=== PATIENT | female | born 1995 | race Caucasian/White ===

== ENCOUNTER 2023-09-01 09:27 | Outpatient (CLI) | payer BC, SELFPAY ==
--- NOTE | 2023-09-01 09:45 | CRLHL7_ITS ---
For Patients: As a result of the Century Cures Act, medical imaging exams and procedure reports are released immediately into your electronic medical record. You may view this report before your referring provider. If you have questions, please contact your health care provider. INDICATION: survey. TECHNIQUE: Conventional transabdominal two-dimensional grayscale ultrasound examination. COMPARISON: None. FINDINGS: There is a living fetus with gestational age of 19 weeks 5 days by LMP and 19 weeks 2 days by today`s measurements. EDC based on LMP is 01/21/2024. BPD: 4.5 cm, 19 weeks 4 days Head circumference: 16.9 cm, 19 weeks 4 days Abdominal circumference: 15.2 cm, 20 weeks 3 days Femur length: 3.1 cm, 19 weeks 4 days The weight is estimated at 322 grams, the 59th percentile. The heart rate is measured at 150 beats per minute and the rhythm appears regular. The head and spine are grossly intact. No gross facial abnormality is evident. The upper lip is intact. Four cardiac chambers are demonstrated. The heart and stomach appear to be on the same side. The diaphragm is intact. Two kidneys and a bladder are demonstrated. The cord insertion is normal and three cord vessels are noted. Four extremities are demonstrated. The amniotic fluid volume is within normal limits. The placenta is posterior with no evidence of previa. The cervical length is normal at 5.3 cm. IMPRESSION: 1. Living fetus with gestational age of 19 weeks 5 days by LMP and 19 weeks 2 days by today`s measurements. EDC based on LMP is 01/21/2024. 2. No anomaly evident. Dictated by Joel Moreira MD @ 09/02/2023 8:22:01 AM (Electronically Signed)
== END 2023-09-01 09:28 | disposition home or self-care (01) ==
LOC: US 09:28
PROVIDERS: Visit Provider Obstetrics & Gynecology
DX: Z34.92 Encounter for supervision of normal pregnancy, unspecified, second trimester (principal); Z3A.19 19 weeks gestation of pregnancy
CPT/HCPCS: 76805; 80053; 87086

== ENCOUNTER 2023-09-02 15:57 | Emergency (ER) | payer BC, SELFPAY ==
[2023-09-02 16:02] VITALS: BP 129/81; PULSE 101; RESP 18; TEMP 37; O2SAT 100; BMI 25.0
--- NOTE | 2023-09-02 16:02 | ED_ITS ---
HPI - General Adult General Time Seen by Provider: 16:02 Date Seen: 09/02/23 Chief complaint: Urogenital Problems, Female Stated complaint: possible UTI Time Seen by Provider: 09/02/23 15:58 Source: patient, RN notes reviewed and old records reviewed Mode of arrival: ambulatory Limitations: no limitations History of Present Illness HPI narrative: 28-year-old female G1 at 19+ 6 who presents today with urinary concerns.She reports right flank pain for the last 3 4 days, became more intense today. 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 She took some ibuprofen which improved her symptoms today. No dysuria nor hematuria. Denies chest pain or shortness of breath. No abdominal pain or tenderness. No diarrhea or constipation. No vaginal bleeding or leakage of fluid. Related Data Home Medications Medication Instructions Recorded Confirmed cetirizine 10 mg capsule (Zyrtec) 10 mg PO QDAY PRN 08/12/23 09/01/23 docosahexaenoic acid 200 mg mg PO 08/12/23 09/01/23 capsule ( DHA) Previous Rx's Medication Instructions Recorded hydroxyzine pamoate 25 mg capsule 50 mg (2 x 25 mg) PO QHS #60 caps 08/12/23 (Vistaril) Allergies Allergy/AdvReac Type Severity Reaction Status Date / Time No Known Drug Allergies Allergy Verified 09/01/23 10:10 [facility] Medical History Hyperprolactinemia ?E22.1 - Hyperprolactinemia (ICD-10) Family History Mother Endometriosis Pulmonary embolism Father Kidney disease Maternal Grandmother Diabetes Paternal Grandfather Lung cancer Social History (Updated 08/12/23 @ 13:01 by Lazara Fournier MD) Narrative: Patient works as a clinical data analysis, she is , no restoration or cultural needs, no chemical radiation exposure, no current or previous tobacco, alcohol, recreational drug use. No dietary restrictions. Accepts blood transfusions in the case of an emergency. Exam Narrative: Exam Narrative: General: Well-developed and well-nourished, no acute distress Head: Atraumatic and normocephalic Eyes: Pupils are equal reactive, extraocular motions intact, conjunctiva clear ENT: External nose and ears are normal, posterior pharynx without erythema or exudate Neck: No midline cervical tenderness, full spontaneous range of motion the neck, trachea midline, no adenopathy Heart: Regular rate and rhythm no murmurs or thrills Lungs: Clear to auscultation bilaterally without wheezes or crackles Abdomen: Soft, nontender, nondistended with active bowel sounds, mild right CVA tenderness to palpation but not percussion Musculoskeletal: No tenderness, deformity, or edema Neurologic: Awake, alert, and oriented x3, no gross focal neurologic deficits, cranial nerves intact as tested Psych: Mood and affect are appropriate Skin: No rashes Const: Vital Signs, click to edit/add: Vital Signs - 24 hr 09/02/23 16:02 Temperature 98.6 F Pulse Rate [Pulse Oximeter] 101 H Respiratory Rate 18 Blood Pressure [Ri ght Upper Arm] 129/81 Pulse Oximetry 100 Oxygen Delivery Me thod Room Air Course Course ED Course: Patient presents with flank pain, she is quite concerned about kidney infection. Review of chart shows the patient was seen yesterday with some right flank pain, urinalysis at that time did not demonstrate any indication of infection, no hematuria, no red cells. she has no tenderness to percussion and only minimal tenderness to palpation. No right upper quadrant, right lateral, right lower quadrant tenderness to suggest acute cholecystitis or acute appendicitis. Labs ordered and is repeat urinalysis although this is unlikely to represent urinary tract infection. Concern for possible hydronephrosis and h ydroureter related to ureteral compression. Right upper quadrant ultrasound with right renal ultrasound ordered. Reevaluation(s) Time of Reevaluation #1: 17:04 Reevaluation #1: Right upper quadrant and right renal ultrasound negative for hydronephrosis, hydroureter, Renal stones,acute cholecystitis, biliary obstruction. Labs are pending. Time of Reevaluation #2: 17:36 Reevaluation #2: Labs ordered and independently interpreted by me with mild leukocytosis which likely is physiologic related to . Urine today with 2-5 white blood cells and few bacteria. Given bacteria in symptoms, patient will be started on Keflex. Patient reexamined, still no right-sided abdominal tenderness in the upper, lower, or mid abdomen no lateral abdominal tenderness to suggest acute appendicitis. Vital Signs Vital signs: Initial Vital Signs Temperature 98.6 F 09/02/23 16:02 Temperature Source Temporal Artery Scan 09/02/23 16:02 Pulse Rate 101 H 09/02/23 16:02 Respiratory Rate 18 09/02/23 16:02 Blood Pressure 129/81 09/02/23 16:02 Blood Pressure Mean 97 09/02/23 16:02 Pulse Oximetry 100 09/02/23 16:02 Oxygen Delivery Method Room Air 09/02/23 16:02 Vital Signs Temperature 98.6 F 09/02/23 16:02 Pulse Rate 101 H 09/02/23 16:02 Respiratory Rate 18 09/02/23 16:02 Blood Pressure 129/81 09/02/23 16:02 Pulse Oximetry 100 09/02/23 16:02 Oxygen Delivery Method Room Air 09/02/23 16:02 Temperature 98.6 F 09/02/23 16:02 Pulse Rate 101 H 09/02/23 16:02 Respiratory Rate 18 09/02/23 16:02 Blood Pressure 129/81 09/02/23 16:02 Pulse Oximetry 100 09/02/23 16:02 Oxygen Delivery Method Room Air 09/02/23 16:02 Medical Decision Making Lab Data Labs: Lab Results 09/02/23 09/02/23 Range/Units 16:53 17:00 WBC 13.43 H (4.50-11.00) K/uL RBC 3.74 L (4.00-5.20) m/uL Hgb 11.4 L (12.0-16.0) gm/dL Hct 33.9 (33.0-51.0) % MCV 91 (80-100) fL MCH 31 (26-34) pg MCHC 34 (32-36) gm/dL RDW Coeff of Santino 13.0 (11.5-15.5) % Plt Count 206 (140-440) K/uL Neut % (Auto) 79.2 H (42.0-72.0) % Lymph % (Auto) 13.6 L (20-44) % [place] % (Auto) 5.4 (0.0-11.0) % Eos % (Auto) 0.8 (0.0-7.0) % Baso % (Auto) 0.2 (0.0-3.0) % Neut # (Auto) 10.60 H (1.7-7.0) K/uL Lymph # (Auto) 1.80 (0.90-2.90) K/uL [place] # (Auto) 0.70 (0.00-0.90) K/UL Eos # (Auto) 0.10 (0.00-0.50) K/uL Baso # (Auto) 0.00 (0.00-0.30) K/uL Abs Immat Gran (auto) 0.10 (0.00-0.30) K/uL Imm/Tot Granulo (auto) 0.8 % Urine Color Yellow (Yellow) Urine Appearance Clear (Clear) Urine pH 6.0 (5.0-8.5) Ur Specific [place] 1.010 (1.000-1.030) Urine Protein Negative (Negative) Urine Glucose (UA) Negative (Negative) Urine Ketones Negative (Negative) Urine Blood Negative (Negative) Urine Nitrite Negative (Negative) Urine Bilirubin Negative (Negative) Urine Urobilinogen 0.2 (0.2-1.0) Ur Leukocyte Esterase Negative (Negative) Urine RBC 0-2 (0-2) Urine WBC 2-5 (0-5) Ur Squamous Epith Cells None (None-Few) Urine Bacteria Few A (None) Discharge Plan Discharge Clinical Impression: Acute right-sided low back pain, Acute cystitis, Patient Disposition: Home, Self-Care Condition: Stable Instructions: Acute Low Back Pain (ED), at 19 to 22 Weeks (ED) Additional Instructions: Tylenol, warm packs, ice packs for pain follow-up with your primary care doctor and charge account authorizer Activity Level: No Restrictions Discharge Diet: Regular Prescriptions: No Action Zyrtec 10 mg capsule 10 mg PO QDAY PRN DHA 200 mg capsule PO hydroxyzine pamoate [Vistaril] 25 mg capsule 50 mg PO QHS Qty: 60 0RF Follow Up/Referrals: Provider,Not a Local [Primary Care Provider] - Stand Alone Forms: MyHealth Info Instructions
--- NOTE | 2023-09-02 16:26 | CRLHL7_ITS ---
For Patients: As a result of the Century Cures Act, medical imaging exams and procedure reports are released immediately into your electronic medical record. You may view this report before your referring provider. If you have questions, please contact your health care provider. INDICATION: Right flank pain. Twenty weeks . TECHNIQUE: Ultrasound abdomen limited. Sonographic images of the right upper quadrant were obtained using cobian-scale and color Doppler images. COMPARISON: None FINDINGS: Liver: Echogenicity of the liver parenchyma is within normal limits. Bile ducts: Intrahepatic bile ducts are not dilated. The common bile duct measures 0.3 cm. Gallbladder: Contracted, patient not NPO. No cholelithiasis, significant gallbladder wall thickening, or pericholecystic fluid identified. Negative sonographic Guevara`s sign. Pancreas: Pancreas is poorly visualized secondary to acoustic shadowing from overlying/adjacent bowel gas. Right kidney: The right kidney measures 11.6 cm in length. No renal calculi or significant hydronephrosis is identified. IMPRESSION: 1. Gallbladder is contracted, suboptimally evaluated. No cholelithiasis, or sonographic evidence of acute cholecystitis. 2. No right hydronephrosis. Dictated by Lenard Oneill MD @ 09/02/2023 5:36:17 PM (Electronically Signed)
[2023-09-02 16:58] LABS: Basophils Percent Auto 0.2 % (0.0-3.0); Eosinophils Percent Auto 0.8 % (0.0-7.0); Hematocrit 33.9 % (33.0-51.0); Hemoglobin* 11.4 gm/dL (12.0-16.0); Immature Granulocytes Pct Auto 0.8 %; Lymphocytes Percent Auto 13.6 % (20-44); Mean Corpuscular HGB Conc 34 gm/dL (32-36); Mean Corpuscular Hemoglobin 31 pg (26-34); Mean Corpuscular Volume 91 fL (80-100); Monocytes Percent Auto 5.4 % (0.0-11.0); Neutrophils Percent Auto 79.2 % (42.0-72.0); Platelet Count* 206 K/uL (140-440); Red Blood Count 3.74 m/uL (4.00-5.20); White Blood Count* 13.43 K/uL (4.50-11.00)
[2023-09-02 17:07] LABS: Appearance Urine Clear (Clear); Bilirubin Urine Negative (Negative); Blood Urine Negative (Negative); Color Urine Yellow (Yellow); Glucose Urine Negative (Negative); Ketones Urine Negative (Negative); Leukocyte Esterase Urine Negative (Negative); Nitrite Urine Negative (Negative); Protein Urine Negative (Negative); Urobilinogen Urine 0.2 (0.2-1.0)
[2023-09-02 17:17] LABS: Slide Review Reflex No
[2023-09-02 17:20] LABS: RBC Urine 0-2 (0-2)
[2023-09-02 17:21] LABS: Bacteria Urine Few
== END 2023-09-02 17:50 | disposition home or self-care (01) ==
PROVIDERS: Emergency Provider Family Medicine
DX: O23.12 Infections of bladder in pregnancy, second trimester (principal); N30.00 Acute cystitis without hematuria; M54.50 Low back pain, unspecified; Z3A.19 19 weeks gestation of pregnancy
CPT/HCPCS: 36415; 76705; 81001; 85025; 87086; 99284

== ENCOUNTER 2023-10-28 10:45 | Outpatient (CLI) | payer BC, SELFPAY | END 2023-10-28 10:46 | disposition home or self-care (01) | LOC: NFLDREF 10-31 05:44 | PROVIDERS: Visit Provider Obstetrics & Gynecology | DX: Z34.93 Encounter for supervision of normal pregnancy, unspecified, third trimester (principal) | CPT/HCPCS: 86592 ==

== ENCOUNTER 2023-11-23 15:53 | Outpatient (CLI) | payer BC, SELFPAY ==
[2023-11-23 16:04] VITALS: BP 129/73; PULSE 101; PULSE 126; O2SAT 97
[2023-11-23 16:15] VITALS: TEMP 36.7
[2023-11-23 16:48] LABS: Basophils Percent Auto 0.3 % (0.0-3.0); Eosinophils Percent Auto 0.5 % (0.0-7.0); Hematocrit 36.4 % (33.0-51.0); Hemoglobin* 11.9 gm/dL (12.0-16.0); Immature Granulocytes Pct Auto 1.2 %; Lymphocytes Percent Auto 14.2 % (20-44); Mean Corpuscular HGB Conc 33 gm/dL (32-36); Mean Corpuscular Hemoglobin 29 pg (26-34); Mean Corpuscular Volume 89 fL (80-100); Monocytes Percent Auto 5.3 % (0.0-11.0); Neutrophils Percent Auto 78.5 % (42.0-72.0); Platelet Count* 180 K/uL (140-440); RDW Coefficient of Variation % 12.5 % (11.5-15.5); Red Blood Count 4.08 m/uL (4.00-5.20); White Blood Count* 14.58 K/uL (4.50-11.00)
[2023-11-23 16:50] LABS: Appearance Urine Clear (Clear); Bilirubin Urine Negative (Negative); Blood Urine Negative (Negative); Color Urine Yellow (Yellow); Glucose Urine Negative (Negative); Ketones Urine 4+ (Negative); Leukocyte Esterase Urine Negative (Negative); Nitrite Urine Negative (Negative); Protein Urine Negative (Negative); Urobilinogen Urine 0.2 (0.2-1.0)
[2023-11-23 17:07] LABS: Creatinine* 0.4 mg/dL (0.5-1.5); Estimated Glomerular Filt Rate 137 ml/min
[2023-11-23] MEDS: LACTATED RINGERS 1000 ML 1,000 ML IV (17:18)
[2023-11-23 17:19] LABS: Slide Review Reflex No
--- NOTE | 2023-11-23 17:19 | P.OBLDTN_ITS ---
OB - Triage/Final Diagnosis Visit Information Time Seen by Provider: 17:19 Date Seen: 11/23/23 Narrative: The patient is a 28 year old 1 para 0 at 31 weeks gestation by LMP, who presents with abdominal tightening and back pain. is complicated by musculoskeletal hip pain (ongoing PT cares), POTS, endometriosis, history of suspected nephrolithiasis in . Perez notes migraine headache over the weekend, that has since resolved. She notes increasingly frequent [place]-Meyer contractions, with tightening of the upper abdomen where it seems like her uterus will bulge. Today, she noted onset of low back pain that felt like bad period back cramps. This was constant in nature, lasting hours despite tylenol and rest. She notes nausea without vomiting when her pain was at it's worst. She notes she feels she is maintaining hydration and nutrition. She notes her back pain does NOT coincide with onset of tightening, she notes no pain with these tightening episodes. Denies vaginal bleeding or leaking of fluids. Questioned a tiny pink blood streak in her discharge today. Denies abnormal vaginal discharge, vulvovaginal itching/burning. Endorses active movement. She endorses urinary frequency, denies dysuria or malodor. No bowerl concerns. No sick contacts. Evaluation Laboratory results: Laboratory Tests 11/23/23 11/23/23 Range/Units 16:40 16:37 WBC Pending RBC Pending Hgb Pending Hct Pending MCV Pending MCH Pending MCHC Pending Plt Count Pending Neut % (Auto) Pending Lymph % (Auto) Pending [place] % (Auto) Pending Eos % (Auto) Pending Baso % (Auto) Pending Neut # (Auto) Pending Lymph # (Auto) Pending [place] # (Auto) Pending Eos # (Auto) Pending Baso # (Auto) Pending Creatinine 0.4 L (0.5-1.5) mg/dL Estimated GFR 137 ml/min Urine Color Yellow (Yellow) Urine Appearance Clear (Clear) Urine pH 7.0 (5.0-8.5) Ur Specific [place] 1.010 (1.000-1.030) Urine Protein Negative (Negative) Urine Glucose (UA) Negative (Negative) Urine Ketones 4+ A (Negative) Urine Blood Negative (Negative) Urine Nitrite Negative (Negative) Urine Bilirubin Negative (Negative) Urine Urobilinogen 0.2 (0.2-1.0) Ur Leukocyte Esterase Negative (Negative) Vital signs: Vital Signs - 24 hr 11/23/23 16:04 11/23/23 16:15 Temperature 98.0 F Pulse Rate 101 H Blood Pressure 129/73 Pulse Oximetry 97 Comments: General: Alert and oriented, in no acute distress. She does not grimace or note any pain that coincides with uterine irritability. Abdomen: Gravid. Otherwise soft and non-tender. Back: No CVA tenderness. No paraspinal muscle or SI joint tenderness. Pelvic: External genital exam within normal limits, perineum dry. Speculum inserted, thin/white discharge in vaginal vault. Swab for wet prep obtained. No blood in vaginal vault. Cervix appears closed. Gentle SVE performed, cervix is long and closed. FHR: Reactive NST. Baseline 140bpm, moderate variability, 15x15 accelerations present [place]: Intermittent uterine contractions, uterine irritability Final Diagnosis (1) Hip pain, left: Status: Acute (2) Back pain: Status: Acute Problem details: Perez is seen for abdominal tightening and low back pain, intermittent nausea. Benign abdominal and back exam. Pelvic exam unremarkable, wet prep obtained (negative) and cervix is long/closed. She does have intermittent contractions/irritability, patient asymptomatic during these. She notes her former back pain has improved since calling into triage without intervention. We proceeded with CBC/Cr and UA/UC. These are unremarkable in the setting of , aside from evidence of dehydration. We did proceed with 1L of IVF resuscitation. Offered anti-emetics and pain medication, declined due to spontaneous symptom improvement. Reassured her that there is no signs/symptoms of labor at this time. Discussed strict return precautions for contractions, vaginal bleeding, leaking of fluids or decreased movement. I suspect her back pain is musculoskeletal in nature and unrelated to her [place]- Meyer contractions. She is due to see PT tomorrow. Encouraged her to use rest, stretching, light activity, heat/ice and support belt for symptomatic management. Perez has been looking up her symptoms where she is concerned for osteoporosis in . I explained this would be extremely rare, where I suspect her hip/pelvic pain is more likely benign musculoskeletal pain. She notes this is feeling worse with time despite PT care and symptomatic manageme nt. She feels walking is becoming more difficulty. After discussion, we mutually agree to obtain a left hip X-ray as this is her greatest site of pain. This will be completed outpatient, hopeful to coincide with her upcoming Ob visit on Tuesday. All questions answered, return precautions reinforced.
--- NOTE | 2023-11-23 17:55 | PC.OBNST ---
NST Note NST Note Start: 11/23/23 15:56 Freq: ONCE Status: Active Protocol: Document 11/23/23 17:53 HELEN (Rec: 11/23/23 17:54 HELEN [id number]) NST Note 1 Para (# of births) 0 EDC 01/21/24 Gestational Age In Weeks & Days 31 Weeks & 4 Days Patient Presented with Complaint(s) of Contractions/cramping,Nausea and vomiting Reactive Yes Appropriate for Gestational Age Yes RN Lisbeth Ramirez RN Date 11/23/23 Reactive Yes Appropriate for Gestational Age Yes MARICRUZ [place] RNC Date 11/23/23 OB NST charge Yes Complete NST Note via Write Note Yes The provider's electronic signature indicates the NST is reactive/appropriate for gestational age. *Note to provider: If an addendum is required, open the patient's chart and click on the note under the Nurse/Allied Health tab.
[2023-11-23 18:03] LABS: Clue Cells No Clue Cells Seen (None Seen); Trichomonas No Trichomonas Seen (None Seen); Yeast No Yeast Seen (None Seen)
== END 2023-11-23 18:21 | disposition home or self-care (01) ==
LOC: OB OUT 15:53 → OB 15:54
PROVIDERS: PCP Obstetrics & Gynecology; Visit Provider Obstetrics & Gynecology
DX: O47.03 False labor before 37 completed weeks of gestation, third trimester (principal); M25.552 Pain in left hip; M54.9 Dorsalgia, unspecified; Z3A.31 31 weeks gestation of pregnancy
CPT/HCPCS: 36415; 59025; 81003; 82565; 85025; 87210; G0463; J7120

== ENCOUNTER 2023-11-25 10:51 | Outpatient (CLI) | payer BC, SELFPAY | END 2023-11-25 10:52 | disposition home or self-care (01) | PROVIDERS: PCP Obstetrics & Gynecology; Visit Provider Obstetrics & Gynecology | DX: R10.2 Pelvic and perineal pain (principal) | CPT/HCPCS: 80053; 87086 ==

== ENCOUNTER 2023-11-28 11:04 | Outpatient (CLI) | payer BC, SELFPAY ==
--- NOTE | 2023-11-28 11:15 | US_ITS ---
Patient: LARISA FISHER Facility:?[facility] Patient ID:?[id number] Site Patient ID:?[id number]. Site :?1995 Study:?US-Breast Right RT BREAST LMT / DR. STANFORD TO READ-11/28/2023 11:29:30 AM Ordering Physician:?OBINNA MOREL M.D. Final Report: RIGHT BREAST ULTRASOUND CLINICAL HISTORY: RIGHT breast lump. COMPARISON: None. TECHNIQUE: Real-time ultrasound imaging of RIGHT breast with imaging documentation. FINDINGS: Targeted sonogram RIGHT breast 9 o`clock 4 cm from the nipple performed. In this location there is a solid circumscribed hypoechoic solid mass measuring 1.9 x 1.3 x 1.3 cm. Slight internal vascularity. No abscess. IMPRESSION: Benign fibroadenoma anterior depth RIGHT breast 9 o`clock 4 cm from the nipple measuring 1.9 cm. RECOMMENDATIONS: Clinical follow-up. Results and recommendations were discussed with the patient at the time of the exam. BI-RADS Category 2: Benign A lay language report of this examination will be provided to the patient. Dictated by Josh Stanford MD @ 11/28/2023 11:33:24 AM jj/Dictated by: Josh Stanford MD @ 11/28/2023 11:34:00 AM Signed by:?Josh Stanford MD @11/28/2023 12:12:15 PM (Electronic Signature)
--- NOTE | 2023-11-28 12:00 | XR_ITS ---
Patient: LARISA FISHER Facility:?[facility] Patient ID:?[id number] Site Patient ID:?[id number]. Site :?1995 Study:?XRay-Hip Left 2 VIEW-11/28/2023 11:47:11 AM Ordering Physician:HEATHER Final Report: Indication: Left hip pain Technique: Two views left Comparison: None Findings: Bones: Alignment is normal. No fractures or bone lesions. Joint spaces: Unremarkable. Soft tissues: Overlying artifactual density noted. Impression: No acute or significant findings. Dictated by Josh Haywood MD @ 11/28/2023 11:54:48 AM Signed by:?Josh Haywood MD @11/28/2023 11:54:48 AM (Electronic Signature)
== END 2023-11-28 11:05 | disposition home or self-care (01) ==
LOC: US 11:05
PROVIDERS: PCP Obstetrics & Gynecology; Visit Provider Obstetrics & Gynecology
DX: N63.10 Unspecified lump in the right breast, unspecified quadrant (principal); M25.552 Pain in left hip; M54.9 Dorsalgia, unspecified
CPT/HCPCS: 73502; 76642

== ENCOUNTER 2023-12-23 10:30 | Outpatient (CLI) | payer BC, SELFPAY ==
[2023-12-24 09:28] LABS: Strep B DNA Probe Negative (Negative)
[2023-12-24 09:29] LABS: Strep B Susceptibility Needed? No
== END 2023-12-23 10:31 | disposition home or self-care (01) ==
LOC: NFLDREF 10:31
PROVIDERS: Visit Provider Obstetrics & Gynecology
DX: Z34.03 Encounter for supervision of normal first pregnancy, third trimester (principal)
CPT/HCPCS: 87081; 87653

== ENCOUNTER 2024-01-02 15:26 | Outpatient (CLI) | payer BC, SELFPAY ==
[2024-01-02 15:40] VITALS: BP 132/87; PULSE 93
[2024-01-02 15:48] VITALS: RESP 16; TEMP 37.4
[2024-01-02 16:16] LABS: Amnisure Rom* Negative
[2024-01-02 17:41] LABS: Appearance Urine Clear (Clear); Bilirubin Urine Negative (Negative); Blood Urine Negative (Negative); Color Urine Yellow (Yellow); Glucose Urine Negative (Negative); Ketones Urine 1+ (Negative); Leukocyte Esterase Urine Negative (Negative); Nitrite Urine Negative (Negative); Protein Urine Negative (Negative); Specific Gravity Urine 1.015 (1.000-1.030); Urobilinogen Urine 0.2 (0.2-1.0)
[2024-01-02 18:04] LABS: Bacterial Vaginosis* Negative (Negative); Candida glab/krus NOT DETECTED (No Detected); Candida species NOT DETECTED (No Detected); Trichomonas vaginalis NOT DETECTED (No Detected)
--- NOTE | 2024-01-02 18:11 | US_ITS ---
Patient: LARISA FISHER Facility:?[facility] Patient ID:?[id number] Site Patient ID:?[id number]. Site :?1995 Study:?US-OB Pelvis BPP-01/02/2024 7:49:40 PM Ordering Physician:?SANDRA BIRMINGHAM Final Report: INDICATION: decelerations. TECHNIQUE: Ultrasound OB pelvis transabdominal. Real-time cobian-scale imaging of the fetus was performed without stress testing. COMPARISON: None. FINDINGS: heart rate: Regular, 147 bpm. position: Cephalic. Amniotic fluid volume single deepest pocket 6 cm, 2/2. motion 2/2. tone 2/2. breathing movements 0/2. Umbilical artery S/D ratio: Not measured. IMPRESSION: Single viable intrauterine with a biophysical profile 01/27. Respiratory activity was not observed. Dictated by Chinedu Sewell MD @ 01/02/2024 8:50:08 PM Signed by:?Chinedu Sewell MD @01/02/2024 8:50:08 PM (Electronic Signature)
[2024-01-02 19:50] VITALS: BP 124/89; PULSE 112
--- NOTE | 2024-01-02 20:16 | PC.OBNST ---
NST Note NST Note Start: 01/02/24 15:36 Freq: ONCE Status: Active Protocol: Document 01/02/24 20:15 YASIRKayleen (Rec: 01/02/24 20:16 YASIRKayleen [id number]) NST Note 1 Para (# of births) 0 EDC 01/21/24 Gestational Age In Weeks & Days 37 Weeks & 2 Days Patient Presented with Complaint(s) of Leaking fluid Reactive Yes Appropriate for Gestational Age Yes RN Lisbeth Elena RN Date 01/02/24 Reactive Yes Appropriate for Gestational Age Yes RN Dr. Chavez Date 01/02/24 OB NST charge Yes Complete NST Note via Write Note Yes The provider's electronic signature indicates the NST is reactive/appropriate for gestational age. *Note to provider: If an addendum is required, open the patient's chart and click on the note under the Nurse/Allied Health tab.
== END 2024-01-02 20:25 | disposition home or self-care (01) ==
LOC: OB OUT 15:27 → OB 15:36
PROVIDERS: Visit Provider Obstetrics & Gynecology
DX: O36.8390 Maternal care for abnormalities of the fetal heart rate or rhythm, unspecified trimester, not applicable or unspecified (principal)
CPT/HCPCS: 59025; 76819; 81003; 81513; 84112; 87086; 87481; 87661; G0463

== ENCOUNTER 2024-01-08 21:54 | Outpatient (CLI) | payer BC, SELFPAY ==
[2024-01-08 22:10] VITALS: BP 119/84; PULSE 109; RESP 16; TEMP 36.9
--- NOTE | 2024-01-08 23:03 | PC.OBNST ---
NST Note NST Note Start: 01/08/24 22:01 Freq: ONCE Status: Active Protocol: Document 01/08/24 23:01 SANDRA (Rec: 01/08/24 23:03 [facility] [id number]) NST Note 1 Para (# of births) 0 EDC 01/21/24 Gestational Age In Weeks & Days 38 Weeks & 1 Days Patient Presented with Complaint(s) of Decreased movement Reactive Yes Appropriate for Gestational Age Yes MARICRUZ [place]ylie RNC Date 01/08/24 Reactive Yes Appropriate for Gestational Age Yes MARICRUZ Mus[place] RN Date 01/08/24 OB NST charge Yes Complete NST Note via Write Note Yes The provider's electronic signature indicates the NST is reactive/appropriate for gestational age. *Note to provider: If an addendum is required, open the patient's chart and click on the note under the Nurse/Allied Health tab.
--- NOTE | 2024-02-09 12:48 | PC.OBNST ---
NST Note NST Note Start: 01/08/24 22:01 Freq: ONCE Status: Discharge Protocol: Document 01/08/24 23:01 BRM (Rec: 01/08/24 23:03 [facility] [id number]) NST Note 1 Para (# of births) 0 EDC 01/21/24 Gestational Age In Weeks & Days 38 Weeks & 1 Days Patient Presented with Complaint(s) of Decreased movement Reactive Yes Appropriate for Gestational Age Yes MARICRUZ Wylie RNC Date 01/08/24 Reactive Yes Appropriate for Gestational Age Yes MARICRUZ Musa RN Date 01/08/24 OB NST charge Yes Complete NST Note via Write Note Yes 01/08/24 23:03 NST Documentation by Anne Musa NST Note NST Note Start: 01/08/24 22:01 Freq: ONCE Status: Active Protocol: Document 01/08/24 23:01 BRM (Rec: 01/08/24 23:03 [facility] [id number]) NST Note 1 Para (# of births) 0 EDC 01/21/24 Gestational Age In Weeks & Days 38 Weeks & 1 Days Patient Presented with Complaint(s) of Decreased movement Reactive Yes Appropriate for Gestational Age Yes MARICRUZ Wylie RNC Date 01/08/24 Reactive Yes Appropriate for Gestational Age Yes MARICRUZ Musa RN Date 01/08/24 OB NST charge Yes Complete NST Note via Write Note Yes The provider's electronic signature indicates the NST is reactive/appropriate for gestational age. *Note to provider: If an addendum is required, open the patient's chart and click on the note under the Nurse/Allied Health tab. Initialized on 01/08/24 23:03 - END OF NOTE The provider's electronic signature indicates the NST is reactive/appropriate for gestational age. *Note to provider: If an addendum is required, open the patient's chart and click on the note under the Nurse/Allied Health tab.
== END 2024-01-08 22:44 | disposition home or self-care (01) ==
LOC: OB OUT 21:54 → OB 21:55
PROVIDERS: Visit Provider Obstetrics & Gynecology
DX: O36.8130 Decreased fetal movements, third trimester, not applicable or unspecified (principal); Z3A.38 38 weeks gestation of pregnancy
CPT/HCPCS: 59025; G0463

== ENCOUNTER 2024-01-12 09:00 | Outpatient (RCR) | payer BC, SELFPAY | END 2024-05-11 23:59 | disposition home or self-care (01) | PROVIDERS: Visit Provider Obstetrics & Gynecology | DX: O26.892 Other specified pregnancy related conditions, second trimester (principal); Z51.89 Encounter for other specified aftercare | CPT/HCPCS: 97012; 97110; 97112; 97140; 97161; 97530; 97535 ==

== ENCOUNTER 2024-01-13 16:09 | Inpatient (IN) | payer BC, SELFPAY ==
[2024-01-13] VITALS (9 sets, daily range): BP systolic 123–130; BP diastolic 84–88; PULSE 80–134; TEMP 36.7–37.1; O2SAT 96; BMI 29.6
--- NOTE | 2024-01-13 10:00 | CRLHL7_ITS ---
For Patients: As a result of the Century Cures Act, medical imaging exams and procedure reports are released immediately into your electronic medical record. You may view this report before your referring provider. If you have questions, please contact your health care provider. INDICATION: MAURICIO check COMPARISON: 01/02/2024 TECHNIQUE: Real time cobian scale imaging of the fetus was performed. Without non-stress testing. FINDINGS: Sonographic imaging demonstrates a single living intrauterine gestation. Fetus demonstrates a regular cardiac rate of 155 beats per minute. Fetus has a vertex position. The amniotic fluid volume single deepest pocket measurement of 8.6 cm. MAURICIO 25.2 cm. The fetus was active and demonstrated normal breathing movements. There was normal flexion and extension of the trunk and extremities. IMPRESSION: Normal biophysical profile score of 8 out of 8. SBP 8.6 cm. MAURICIO 25.2 cm. Dictated by Josh Haywood MD @ 01/13/2024 10:50:39 AM (Electronically Signed)
[2024-01-13 17:59] LABS: Basophils Percent Auto 0.1 % (0.0-3.0); Eosinophils Percent Auto 0.3 % (0.0-7.0); Hematocrit 34.7 % (33.0-51.0); Hemoglobin* 11.4 gm/dL (12.0-16.0); Immature Granulocytes Pct Auto 1.4 %; Mean Corpuscular HGB Conc 33 gm/dL (32-36); Mean Corpuscular Hemoglobin 28 pg (26-34); Mean Corpuscular Volume 86 fL (80-100); Monocytes Percent Auto 5.7 % (0.0-11.0); Neutrophils Percent Auto 78.5 % (42.0-72.0); Platelet Count* 160 K/uL (140-440); RDW Coefficient of Variation % 13.7 % (11.5-15.5); Red Blood Count 4.03 m/uL (4.00-5.20); White Blood Count* 11.16 K/uL (4.50-11.00)
[2024-01-13 18:02] LABS: Slide Review Reflex No
--- NOTE | 2024-01-13 18:02 | P.LDBA_ITS ---
Subjective History of Present Illness Time Seen by Provider: 18:02 Date Seen: 01/13/24 Narrative: Patient is being admitted to Labor and Delivery for IOL due to newly diagnosed mild polyhydramnios. She is a 29 year old at 38 6/7 weeks gestation. Her full history and physical was dictated by Dr. Alvarez on 12/30/23. Please see this for details. Patient seen in the clinic today and complained of persistent watery like discharge, speculum exam negative, AmniSure negative, MAURICIO found at 26 with 2 SDP more than 8cm. After discussion of new diagnosis and recommendation for IOL between 39 0/7 weeks and 40 0/7 weeks, patient preferred to be induced as soon as possible. Specific Issues/Plans G1, TIM: 01/21/24 by LMP and first trimester US H&P 12/29 Dr. Alvarez KALEB at 16 6/7 weeks from [place] # Mild polyhydramnios -MAURICIO 26cm # Insomnia -Started during , has been manageable with Vistaril at night -Recommend to add magnesium supplement # Migraines -Infrequent prior to , no aura -Had several in 2nd trimester # Restless legs, chronic -Magnesium supplement -increased iron or iron supplement may help # History of hyperprolactinemia - Treated prior to with cabergoline by freelance photographer - Prolactin on 02/2023: 5.3 # Endometriosis -Confirmed by laparoscopy -Previously treated with naltrexone # Suspected kidney stones in , multiple occurrences of pain but only evaluated once # POTS, pt reports she has seizures if she passes out; last episode in early but did not pass out Elevated heart rate at 28 weeks Last seizure a couple years ago, reviewed these are atypical with POTS Neurology records confirm convulsive syncope, NOT seizures # Right breast lump [x] breast US consistent with benign fibroadenoma # Pelvic pain, left > right hip pain, back pain - Thought to be round ligament pain by PT. Worsening despite symptomatic cares and PT - Patient concerned for transient osteoporosis in (resolves spontaneously ); osteonecrosis of femoral head presents similarly (and requires ortho intervention). - left hip xray normal. Consider MRI if symptoms persist / worsen. -Flexeril 5 mg TID prn 12/09/23 - no benefit - Discussed consideration of IOL at 39 weeks given hip pain, discussed ARRIVE trial data. Patient considering induction in the 40th week. Vaccine status: Covid: declines Tdap: 11/11/23 Flu: declines RSV: NA 1st trimester labs: Performed on 06/14/2023: Blood type and group: B positive, antibody screen negative, hemoglobin 12.5, platelets [id number], rubella immune, RPR negative, hepatitis-B surface antigen negative, HIV negative, declined gonorrhea chlamydia testing, urine culture negative, hepatitis-C negative. Varicella immune. Up-to-date with Pap smear, will be due for a repeat Pap smear on December 2024 First-trimester ultrasound completed on 06/14/2023: Uterus is normal in size, myometrium is homogeneous, no myomas, the right ovary is normal, left ovary n ormal, no free fluid in the cul-de-sac. IUP. [place] to rump length 1.8 cm. These measurements correspond to a 8 week 3 day gestation with a EDC: 01/21/2024. The yolk sac is identified, appears normal, it measures 3.2 mm. heart activity is present with a rate of 183 beats per minute. OB - Problem Based A/P Additional Plan (1) Polyhydramnios in third trimester: Status: Acute Plan IOL to start tonight with Cytotec protocol. Continuous monitoring. GBS negative no need for antibiotics. Pain management as needed, planning Morphine and Vistaril tonight. Plans epidural at some point. Patient with POTS, HR higher starting hemoglobin today normal. Will keep close monitoring. OB Exam Physical Exam Vital signs: Temp Pulse BP Pulse Ox 98.8 F 134 H 123/85 96 01/13/24 16:16 01/13/24 16:18 01/13/24 16:18 01/13/24 16:15 Detailed Labor and Delivery Exam Patient Gravid: Yes Cervix position: mid Consistency: medium Tachysystole: No Fetus (Single) Station: -3 Amniotic Membrane Status: intact Heart Rate Baseline: 140 Monitor Accelerations: Present Monitor Decelerations: None Basketball Coach Variability: Moderate (6-25)
[2024-01-13] MEDS: miSOPROStoL 25 MCG/0.25 TABLET VAGINAL (18:23)
[2024-01-13] MEDS: MORPHINE 10 MG/ML inj IM (23:17)
[2024-01-13] MEDS: hydrOXYzine pamoate 25 MG CAPSULE 100 MG PO (23:17)
[2024-01-13] MEDS: CALCIUM CARBONATE 500 MG CHEW PO (23:57)
[2024-01-14] VITALS (47 sets, daily range): BP systolic 93–149; BP diastolic 54–87; PULSE 76–148; RESP 16–20; TEMP 36.6–37.4; O2SAT 100
[2024-01-14] MEDS: LACTATED RINGERS 1000 ML 1,000 ML 999 ML IV (05:58)
[2024-01-14] MEDS: miSOPROStoL 25 MCG/0.25 TABLET VAGINAL (07:49)
[2024-01-14] MEDS: CALCIUM CARBONATE 500 MG CHEW PO ×2 (07:55→19:24)
--- NOTE | 2024-01-14 08:43 | PM.OBPNL ---
Subjective Time Seen by Provider: 08:43 Date Seen: 01/14/24 Narrative: Patient here for IOL due to mild polyhydramnios. Initial cervical exam was 1cm. She is s/p only 1 dose of misoprostol overnight due to concern for tachysystole and period of cat II strip after she received morphine. Objective Vital Signs: Last Vital Signs Temp 98.0 F 01/13/24 22:30 Pulse 85 01/14/24 07:23 BP 119/78 01/14/24 07:23 Pulse Ox 96 01/13/24 21:54 Pelvic Exam Dilation (cm): 1.5 Effacement (%): 50 Station: Ballottable Comments: head is extremely ballotable and no engaged in the pelvis. Contractions Monitor mode: External Contraction Frequency: Infrequent and minimally palpable to patient Assessment Station: -3 Heart Rate Baseline: 140 Monitor Accelerations: Present Monitor Decelerations: None Plan Plan: - We discussed continuing with misoprostol as a cook cath would not be a good idea due to how ballotable head is. - After cervical ripening, the plan would be for pitocin and AROM when safe Wellbeing NST: 130s bpm, moderate variability, + accels, - decel. Cat I [place] [address]: Irregular
[2024-01-14] MEDS: OXYTOCIN 30 unit/500 ML in NS 30 UNIT/500 ML BAG IVPB ×2 (13:04)
[2024-01-14] MEDS: LACTATED RINGERS 1000 ML 1,000 ML 124 ML IV (13:05)
--- NOTE | 2024-01-14 14:07 | PM.OBPNL ---
Subjective Time Seen by Provider: 12:30 Date Seen: 01/14/24 Objective Vital Signs: Last Vital Signs Temp 98.0 F 01/13/24 22:30 Pulse 93 01/14/24 12:22 BP 121/77 01/14/24 12:22 Pulse Ox 96 01/13/24 21:54 Pelvic Exam Dilation (cm): 1.5 Effacement (%): 75 Station: -4 Comments: Patient expressed lack of frustration with lack of progress. She does not want another dose of misoprostol as it causes her to contract a lot with minimal change. I tried to reassure patient that NST has been reassuring and now her contractions are spacing out as it is time to redose. We discussed cook cath given that station is more applied vs pitocin. Declined cook cath in favor of pitocin. If she does not make progress on pitocin then she is considering a delivery. Will start titrating pitocin. She is requesting IV pain medication at this time. She also notes right sided pack pain. No CVAT bilaterally. Fetus is mostly on the right side, will reposition to help patinet find a more comfortable position. Contractions Monitor mode: External Assessment Assessment: induction ongoing Station: -4 Status: Category l Heart Rate Baseline: 140 Skilled Nursing Variability: Moderate (6-25) Monitor Accelerations: Present Monitor Decelerations: None
[2024-01-14] MEDS: MORPHINE 10 MG/ML inj IM (14:41)
[2024-01-14] MEDS: LACTATED RINGERS 1000 ML 1,000 ML IV (16:52)
[2024-01-14] MEDS: ROPIVACAINE 0.2% 100 ml 100 ML 12 MG EPIDURAL (16:56)
[2024-01-14] MEDS: BUPIVACAINE 0.25% PF 10 ML 10 ML ML EPIDURAL (16:56)
--- NOTE | 2024-01-14 17:12 | P.ANBPRC_ITS ---
[facility] Medical History Hyperprolactinemia ?E22.1 - Hyperprolactinemia (ICD-10) Surgical History History of hysteroscopy ?Z98.890 - Other specified postprocedural states (ICD-10) Hx of tonsillectomy ?Z90.89 - Acquired absence of other organs (ICD-10) H/O breast biopsy ?Z98.890 - Other specified postprocedural states (ICD-10) H/O laparoscopy ?Z98.890 - Other specified postprocedural states (ICD-10) Family History Mother Pulmonary embolism Nephrolithiasis Father Nephrolithiasis Maternal Grandmother Diabetes Endometriosis Paternal Grandfather Lung cancer Sister Endometriosis Aunt Endometriosis Maternal Grandfather Myocardial infarction Other Kidney disease Social History Narrative: Patient works as a clinical data analysis, she is , no church or cultural needs, no chemical radiation exposure, no current or previous tobacco, alcohol, recreational drug use. No dietary restrictions. Accepts blood transfusions in the case of an emergency. What is your current living situation?: I presently have a place to live Problems where you live: no known problems In the past 12 months, utilities in danger of being shut off: no In past 12 months, lack of transportation kept you from medical appts, meetings, work, or getting things needed for daily living: no In the past 12 mos, have been you worried that your food would run out before you had money to buy more?: never true In the past 12 mos, the food you bought just didn't last and you didn't have money to buy more?: never true Smoking Status: Never smoker How often does anyone, including family, friends and others, physically hurt you : never How often does anyone, including family, friends and others, insult or talk down to you: never How often does anyone, including family, friends and others, threaten you with harm: never How often does anyone, including family, friends and others, scream or curse at you: never Little interest or pleasure in doing things: not at all Feeling down, depressed, or hopeless: not at all Meds Home Medications and Allergies Home Medications ?Medication ?Instructions ?Recorded ?Confirmed ?Type cetirizine 10 mg capsule (Zyrtec) 10 mg PO QDAY PRN 08/12/23 01/13/24 History docosahexaenoic acid 200 mg 200 mg PO DAILY PRN 08/12/23 01/13/24 History capsule ( DHA) calcium carbonate (Tums) 200 mg PO BID PRN 10/28/23 01/13/24 History Allergies Allergy/AdvReac Type Severity Reaction Status Date / Time No Known Drug Allergies Allergy Verified 01/13/24 08:58 Results Labs Labs: Laboratory Results - last 24 hr 01/13/24 17:34 WBC 11.16 H RBC 4.03 Hgb 11.4 L Hct 34.7 MCV 86 MCH 28 MCHC 33 RDW Coeff of Santino 13.7 Plt Count 160 Neut % (Auto) 78.5 H Lymph % (Auto) 14.0 L [place] % (Auto) 5.7 Eos % (Auto) 0.3 Baso % (Auto) 0.1 Neut # (Auto) 8.80 H Lymph # (Auto) 1.60 [place] # (Auto) 0.60 Eos # (Auto) 0.00 Baso # (Auto) 0.00 Abs Immat Gran (auto) 0.20 Imm/Tot Granulo (auto) 1.4 Blood Type B Positive Antibody Screen NEGATIVE Vital Signs Vital Signs: Last Vital Signs Temp 98 F 01/14/24 16:09 Pulse 105 H 01/14/24 17:10 Resp 20 01/14/24 16:09 BP 131/80 01/14/24 17:10 Pulse Ox 100 01/14/24 17:06 Weight: 80.739 kg Height: 165.1 cm Anesthesia Procedures Epidural Insertion Patient Location: OB Start Time: 16:30 Stop Time: 17:30 Start Date: 01/14/24 Stop Date: 01/14/24 Reason for Block: procedure for pain Patient Position: sitting Performed By: Hiren Cummings Preanesthetic Checklist: IV checked, risks and benefits discussed, surgical consent, monitors and equipment checked, pre-op evaluation, timeout performed and anesthesia consent Prep: chlorhexidine gluconate Monitoring: blood pressure monitoring, continuous pulse oximetry and heart rate Approach: midline Vertebral Space: lumbar (1-5) Epidural Technique: LARISSA saline Needle Type: Tuohy needle Injection Technique: continuous catheter Needle gauge: 17 Needle Length (cm): 10 cm Needle Insertion Depth (cm): 6 Catheter Gauge: 19 Catheter Type: multi-orifice Catheter at skin depth (cm): 12 Test Dose Result: negative and lidocaine 1.5% with epinephrine 1 to 200,000
[2024-01-14] MEDS: FAMOTIDINE 20 MG TABLET PO (18:04)
[2024-01-14] MEDS: LACTATED RINGERS 1000 ML 1,000 ML 125 ML IV (22:18)
[2024-01-15] VITALS (20 sets, daily range): BP systolic 108–134; BP diastolic 57–86; PULSE 84–130; RESP 16; TEMP 36.4–37.2; O2SAT 95–97
[2024-01-15] MEDS: ROPIVACAINE 0.2% 100 ml 100 ML 12 MG EPIDURAL (00:37)
--- NOTE | 2024-01-15 02:51 | W.PM.VAGDEL1 ---
Procedure Delivery date: 01/15/24 Procedure Done: Global Procedure Details: Perez is a 29 year-old G1 P 0 admitted on 01/13/24 and 38 and 6/7 weeks gestation for induction of labor due to polyhydramnios. Cervical exam on admission was 1.5 cm/ 60% effaced/-3 station with membranes intact in vertex presentation. GBS neg. SROM occurred at 1549 on 01/14/24 with clear fluid. Labor Analgesia: Epidural Pitocin: Yes Complete: 01/14/24 at 2335 Pushin01/14/24 at 2341 heart tones during second stage were II due to intermittent tachycardia At 0213 a viable female infant delivered in vertex OA presentation via spontaneous vaginal delivery. was placed on maternal abdomen. Cord was clamped and cut after a 30-60 second delay. Nose and mouth were bulb suctioned. weight: pending. 8 at 1 minute and 9 at 5 minutes. Shoulder dystocia: No. Nuchal cord: Yes- 1 loop, loose and reduced. Placenta delivered spontaneously and complete at 0216 with a 3 vessel cord. Sent to pathology due to polyhydramnios. Complications: None. Mother and infant were stable after delivery. Laceration(s): 2nd degree, repaired with 2-0 vicryl. Estimated blood loss: 100 mL. Sponge and needles counts are correct. Mother and infant were stable at the time of this note. Events: Labor Induction and Polyhydramnios Delivery augmentation: pitocin Delivery monitor: external FHT Route of delivery: Laceration description: Perineal - 2nd Degree Delivery repair: Vicryl Estimated blood loss (mL): 100 Anesthesia type: Epidural Disposition: floor Gender: Female presentation: vertex Placental Delivery Description: Spontaneous Cord Description: 3 Vessels
[2024-01-15] MEDS: IBUPROFEN 600 MG TABLET PO ×3 (04:52→20:30)
[2024-01-15] MEDS: DOCUSATE SODIUM 100 MG CAPSULE PO (09:00)
[2024-01-15 17:01] LABS: Rapid Plasma Reagin (RPR) Non Reactive (Non Reactive)
[2024-01-15] MEDS: ACETAMINOPHEN 500 MG TABLET 1000 MG PO (18:45)
[2024-01-16 00:48] VITALS: BP 107/74; PULSE 85; RESP 18; TEMP 36.6; O2SAT 83
[2024-01-16] MEDS: ACETAMINOPHEN 500 MG TABLET 1000 MG PO ×2 (00:56→07:26)
[2024-01-16] MEDS: IBUPROFEN 600 MG TABLET PO ×2 (03:17→08:59)
--- NOTE | 2024-01-16 03:45 | PM.ANPOST ---
Post Anesthesia Note Post Anesthesia Note Patient seen: Inpatient Respiratory Status: adequate Cardiovascular Status: adequate Mental Status: baseline Pain: adequate Temp: baseline Anesthetic awareness: N/A Complications: none Follow care: none
[2024-01-16 08:08] LABS: Hemoglobin* 9.8 gm/dL (12.0-16.0)
[2024-01-16 08:30] VITALS: BP 115/77; PULSE 91; RESP 16; TEMP 36.4; O2SAT 96
[2024-01-16] MEDS: DOCUSATE SODIUM 100 MG CAPSULE PO (08:46)
[2024-01-16] MEDS: FAMOTIDINE 20 MG TABLET PO (08:46)
--- NOTE | 2024-01-16 11:05 | PM.OBDSVD1 ---
DS: Providers Provider Time Seen by Provider: 11:06 Date Seen: 01/16/24 Date of admission: 01/13/24 16:09 Primary care physician: Not a Local Provider Admitting Clinician: Lazara Fournier MD Attending Physician on discharge: Lazara Fournier MD Date of Discharge: 01/16/24 DS: Diagnosis Discharge Diagnosis (1) Status post vaginal delivery: Status: Acute (2) Pelvic pain: Status: Acute (3) Hip pain, left: Status: Acute (4) Back pain: Status: Acute (5) POTS (postural orthostatic tachycardia syndrome): Status: Acute (6) Insomnia: Status: Acute (7) Migraines: Status: Acute (8) Endometriosis: Status: Acute (9) Acute blood loss anemia: Status: Acute Exam Narrative: Exam Narrative: Physical exam: General: No acute distress Psych: Alert and oriented x4, full affect HEENT: Normocephalic, atraumatic Heart: Regular rate and rhythm, no murmur rub or gallop Lungs: Clear to auscultation bilaterally Abdomen: Normoactive bowel sounds, soft, no tenderness, rebound, or guarding Skin: No lesions or rashes Lower extremities: No edema or erythema Pelvic exam: Scant bleeding on pad Const: Vital Signs, click to edit/add: Vital Signs - 24 hr 01/15/24 12:27 01/15/24 16:42 01/15/24 20:08 Temperature 97.9 F 97.6 F 97.9 F Pulse Rate [Pulse Oximeter] 97 98 106 H Respiratory Rate 16 16 16 Blood Pressure [Le ft Arm] 115/79 126/84 109/71 Pulse Oximetry 95 97 96 Oxygen Delivery Me thod Room Air Room Air Room Air 01/16/24 00:48 01/16/24 08:30 Temperature 97.8 F 97.5 F L Pulse Rate [Pulse Oximeter] 85 91 Respiratory Rate 18 16 Blood Pressure [Le ft Arm] 107/74 115/77 Pulse Oximetry 83 L 96 Oxygen Delivery Me thod Room Air Room Air OB - DS: Summary Hospital Course Hospital Course: Perez is a 29 year old at 38.6 weeks gestation that was admitted to the Center on 01/13/24 for induction of labor due mild polyhydramnios and family history of stillbirth. She had an uncomplicated vaginal delivery. She delivered a viable female infant. She is . the patient has done well. Overnight patient had no complaints. Her pain is well controlled on oral pain medications. She is tolerating a regular diet. She has passed flatus. She is ambulating without difficulty. Lochia is scant. She is urinating without garg. Patient denies chest pain, SOB, n/v, headache, RUQ pain, vision changes, dizziness. She is requesting referral to pelvic flood PT as she knows the wait time can be long. Will place referral. Time spent discussing smoking cessation with patient: 3 to 10 minutes Gender: Female Time Spent with Patient Time attestation: Total time spent providing and/or coordinating discharge services: Discharge Plan Discharge Disposition: Home, Self-Care Date of Admission: 01/13/24 16:09 Attending Provider on Discharge: Stephanie Chavez Primary Care Provider: Provider,Not a Local Condition: Stable Anticipated Discharge Date/Time: 01/16/24 10:55 Discharge Medications: New Dermoplast (with menthol) 20-0.5 % Aerosol 1 spray topical QID PRN30 Days Qty: 78 0RF acetaminophen 500 mg Tablet 1,000 mg PO Q6H PRN30 Days Qty: 60 0RF famotidine [Acid General Contractor (famotidine)] 20 mg Tablet 20 mg PO DAILY 30 Days Qty: 30 0RF calcium carbonate 200 mg calcium (500 mg) Tablet,Chewable 1,000 - 2,000 mg PO Q2H PRN30 Days Qty: 60 0RF docusate sodium 100 mg Capsule 100 mg PO DAILY 30 Days Qty: 60 0RF ibuprofen 600 mg Tablet 600 mg PO Q6H PRN30 Days Qty: 60 0RF Lanolin (HPA) 100 % Cream 1 applic topical Q1H PRN30 Days Qty: 21 0RF simethicone 80 mg Tablet,Chewable 80 - 160 mg PO Q4H PRN (Reason: gas) 30 Days Qty: 60 0RF ferrous sulfate 325 mg (65 mg iron) tablet 325 mg PO Q OTHER DAY 30 Days Qty: 15 0RF Continued Zyrtec 10 mg capsule 10 mg PO QDAY PRN DHA 200 mg capsule 200 mg PO DAILY PRN cyclobenzaprine 5 mg tablet 5 mg PO TID PRN (Reason: muscle spasm) Qty: 30 0RF calcium carbonate [Tums] 200 mg calcium (500 mg) tablet,chewable 200 mg PO BID PRN hydroxyzine pamoate [Vistaril] 25 mg capsule 50 mg PO QHS Qty: 120 1RF Discharge Orders: Discharge Order (Routine); Ordered 01/16/24 Ordered By: Stephanie Chavez Patient Education: Vaginal Delivery (DC), OB Vaginal/Breast Feeding Follow Up Appointments: Provider,Not a Local [Primary Care Provider] - Forms: [facility] Info Instructions Discharge Comments: Discharge instructions were reviewed with the patient including signs and symptoms of infection and home going medications. Lifting Restrictions: 20 pounds for [address] while taking narcotic pain medication: Approximately 1 week. Off Work or School for 6 weeks. Nothing vaginally for 6 weeks Symptoms to report to doctor: -Bleeding that saturates more than one pad per hour ?-Passing clots larger than the size of a golf ball ?-Pain not relieved by prescribed medication ?-Fever above 100.4 degrees Fahrenheit ?-A foul vaginal odor ?-Difficulty in emotions, mood and functions ?-Thoughts of hurting yourself and/or ?-Painful, reddened area in your breast ?-Any drainage, redness or tenderness in your IV/epidural site ?-Severe headache that doesn't improve after taking medications ?-Changes in vision, including temporary loss of vision, blurred vision, and/or light sensitivity ?-Upper abdominal pain (usually under ribs on the right side) ?-Decrease in urination or painful, frequent urinating ?-Chest pain ?-Shortness of breath ?-Tenderness or pain with redness and/swelling in the calf(s) of your leg Follow Up with a [facility] provider: - Optional 2 week visit: Answer concerns for infant care, screen for anxiety/depression. - 6 week visit: Annual exam. consultation services are available to all mothers and babies for the first year after delivery.? To make an appointment, please call [phone].
== END 2024-01-16 11:30 | disposition home or self-care (01) | DRG 560 ==
LOC: OB 16:09
PROVIDERS: Obstetrics & Gynecology; Admitting Provider Obstetrics & Gynecology; Visit Provider Obstetrics & Gynecology
DX: O40.3XX0 Polyhydramnios, third trimester, not applicable or unspecified (principal); O36.8330 Maternal care for abnormalities of the fetal heart rate or rhythm, third trimester, not applicable or unspecified; O70.1 Second degree perineal laceration during delivery; O90.81 Anemia of the puerperium; D62 Acute posthemorrhagic anemia; O99.891 Other specified diseases and conditions complicating pregnancy; G47.00 Insomnia, unspecified; G25.81 Restless legs syndrome; G43.009 Migraine without aura, not intractable, without status migrainosus; G90.A Postural orthostatic tachycardia syndrome [POTS]; N80.9 Endometriosis, unspecified; R10.2 Pelvic and perineal pain; M25.552 Pain in left hip; M54.9 Dorsalgia, unspecified; Z3A.38 38 weeks gestation of pregnancy; Z37.0 Single live birth
CPT/HCPCS: 01967; 36415; 51798; 59200; 76815; 76819; 85018; 85025; 86592; 86850; 86900; 86901; 88307; A9270; J0665; J2270; J2371; J2795; J7120

== ENCOUNTER 2024-01-22 19:59 | Emergency (ER) | payer BC, SELFPAY ==
[2024-01-22 20:05] VITALS: BP 127/83; PULSE 121; RESP 16; TEMP 37.1; O2SAT 98; BMI 26.4
--- NOTE | 2024-01-22 20:40 | ED.GENADULT ---
HPI - General Adult General Chief complaint: Post OB/Post- Complication Stated complaint: One week post , mastitis Time Seen by Provider: 01/22/24 20:02 History of Present Illness HPI narrative: This 29-year-old female is about 1 week after the of her 1st child, a baby girl. Everything went well in the except she had lots of insomnia during this time. She has been taking Vistaril with some relief. She also started dicloxacillin yesterday for mastitis. She comes in today because of depression symptoms. She does not feel homicidal or suicidal but just feels that she can not connect with her child. She has very good support around her, a supportive and parents. She does not have a prior history of depression or anxiety. She arrives here with normal vital signs except for some tachycardia. Related Data Home Medications ?Medication ?Instructions ?Recorded ?Confirmed cetirizine 10 mg capsule (Zyrtec) 10 mg PO QDAY PRN 08/12/23 01/22/24 docosahexaenoic acid 200 mg 200 mg PO DAILY PRN 08/12/23 01/22/24 capsule ( DHA) polyethylene glycol 3350 17 gram 17 g PO DAILY 01/22/24 01/22/24 oral powder packet (Miralax) Previous Rx's ?Medication ?Instructions ?Recorded hydroxyzine pamoate 25 mg capsule 50 mg (2 x 25 mg) PO QHS #120 caps 11/18/23 (Vistaril) acetaminophen 500 mg tablet 1,000 mg (2 x 500 mg) PO Q6H PRN 01/16/24 30 days #60 tabs benzocaine 20 %-menthol 0.5 % 1 spray topical QID PRN 30 days 01/16/24 topical aerosol (Dermoplast (with #78 grams menthol)) ferrous sulfate 325 mg (65 mg 325 mg PO Q OTHER DAY 30 days #15 01/16/24 iron) tablet tabs ibuprofen 600 mg tablet 600 mg PO Q6H PRN 30 days #60 tabs 01/16/24 dicloxacillin 500 mg capsule 500 mg PO QID #40 caps 01/21/24 Allergies Allergy/AdvReac Type Severity Reaction Status Date / Time No Known Drug Allergies Allergy Verified 01/22/24 20:16 Review of Systems Status of ROS: Reports: 10 or more systems reviewed and unremarkable except as noted in History and below Narrative: Constitutional: No fevers, no weight gain or loss. Eyes: No discharge. No vision changes. HENT: No congestion, no sore throat, no ear pain. Cardiovascular: No chest pain, no palpitations. Respiratory: No shortness of breath, no wheezes, no cough. Gastrointestinal: No abdominal pain, no vomiting, no diarrhea. Genitourinary: No dysuria, no hematuria. Musculoskeletal: Normal range of motion. Skin: No rashes, no pruritis. Neurological: No dizziness, weakness, sensory change, speech change. Endo/Heme/Allergies: No bruising or bleeding. No polydipsia. Pysch: no suicidality. depression symptoms and insomnia. All other systems reviewed and are negative. PFSH PFS Medical History Hyperprolactinemia ?E22.1 - Hyperprolactinemia (ICD-10) Surgical History History of hysteroscopy ?Z98.890 - Other specified postprocedural states (ICD-10) Hx of tonsillectomy ?Z90.89 - Acquired absence of other organs (ICD-10) H/O breast biopsy ?Z98.890 - Other specified postprocedural states (ICD-10) H/O laparoscopy ?Z98.890 - Other specified postprocedural states (ICD-10) Family History Mother Pulmonary embolism Nephrolithiasis Father Nephrolithiasis Maternal Grandmother Diabetes Endometriosis Paternal Grandfather Lung cancer Sister Endometriosis Aunt Endometriosis Maternal Grandfather Myocardial infarction Other Kidney disease Social History Narrative: Patient works as a clinical data analysis, she is , no baptist or cultural needs, no chemical radiation exposure, no current or previous tobacco, alcohol, recreational drug use. No dietary restrictions. Accepts blood transfusions in the case of an emergency. What is your current living situation?: I presently have a place to live Problems where you live: no known problems In the past 12 months, utilities in danger of being shut off: no In past 12 months, lack of transportation kept you from medical appts, meetings, work, or getting things needed for daily living: no In the past 12 mos, have been you worried that your food would run out before you had money to buy more?: never true In the past 12 mos, the food you bought just didn't last and you didn't have money to buy more?: never true Smoking Status: Never smoker Do you use any of these nicotine containing products: None How often do you have a drink containing alcohol: never AUDIT-C Alcohol total score: 0 Non-prescribed substance use: denies use How often does anyone, including family, friends and others, physically hurt you: never How often does anyone, including family, friends and others, insult or talk down to you: never How often does anyone, including family, friends and others, threaten you with harm: never How often does anyone, including family, friends and others, scream or curse at you: never Little interest or pleasure in doing things: not at all Feeling down, depressed, or hopeless: not at all Exam Narrative: Exam Narrative: Constitutional: Well-developed, well-nourished, no acute distress. HEENT: Normocephalic, atraumatic. Neck: Normal range of motion. Nontender. Supple. Heart: Regular. No murmurs. Normal rate. Intact distal pulses. Lungs: Clear to auscultation. No chest discomfort. No wheezes, rhonchi, or rales. Abdomen: Normal bowel sounds. Nontender. No rebound tenderness. Genitalia: Deferred. Back: No midline tenderness. Normal range of motion. Extremities: Normal range of motion. No injury. Skin: Intact. No rash. Warm. No erythema or pallor. Neurologic: No altered sensation. No weakness. Alert and oriented. Psychiatric: No suicidality. Tearful at times but very pleasant. She identifies some symptoms of depression but does not feel unsafe to herself or to others. Nursing notes and vitals signs are reviewed. Const: Vital Signs, click to edit/add: Vital Signs - 24 hr 01/22/24 20:05 Temperature 98.8 F Pulse Rate [Right Pulse Oximeter] 121 H Respiratory Rate 16 Blood Pressure [Ri ght Upper Arm] 127/83 Pulse Oximetry 98 Oxygen Delivery Me thod Room Air Course Vital Signs Vital signs: Initial Vital Signs Temperature 98.8 F 01/22/24 20:05 Temperature Source Temporal Artery Scan 01/22/24 20:05 Pulse Rate 121 H 01/22/24 20:05 Respiratory Rate 16 01/22/24 20:05 Blood Pressure 127/83 01/22/24 20:05 Blood Pressure Mean 97 01/22/24 20:05 Blood Pressure Position Sitting 01/22/24 20:05 Pulse Oximetry 98 01/22/24 20:05 Oxygen Delivery Method Room Air 01/22/24 20:05 Vital Signs Temperature 98.8 F 01/22/24 20:05 Pulse Rate 121 H 01/22/24 20:05 Respiratory Rate 16 01/22/24 20:05 Blood Pressure 127/83 01/22/24 20:05 Pulse Oximetry 98 01/22/24 20:05 Oxygen Delivery Method Room Air 01/22/24 20:05 Temperature 98.8 F 01/22/24 20:05 Pulse Rate 121 H 01/22/24 20:05 Respiratory Rate 16 01/22/24 20:05 Blood Pressure 127/83 01/22/24 20:05 Pulse Oximetry 98 01/22/24 20:05 Oxygen Delivery Method Room Air 01/22/24 20:05 Medical Decision Making MDM Narrative Medical decision making narrative: This patient comes in with depression symptoms after delivering her child about a week ago. She did begin breast-feeding but has not done so for more than a day be mostly because she feels she cannot do so because of her depressed mood. She is expressing milk as she does have mastitis and is currently taking an antibiotic. This patient is showing signs of depression but has very good support around her. A [facility] mental assessment is ordered for the purposes of arranging therapy for her. According to up-to-date guidelines this is the preferred strategy initially at least. She is using Vistaril for insomnia but states that she still does not get adequate sleep. I did provide prescription for trazodone which can be used also if needed. This patient is okay to be discharged home and will follow up with therapy as may be arranged. She understands that she can return here if not improving or worsening. Discharge Plan Discharge Clinical Impression: Mastitis, Post- depression Patient Disposition: Home w/ Parent or Adult Condition: Unchanged Additional Instructions: Use insomnia medications as needed and directed for better sleep. Follow-up with therapy options. Return if worsening. Prescriptions: No Action Zyrtec 10 mg capsule 10 mg PO QDAY PRN DHA 200 mg capsule 200 mg PO DAILY PRN polyethylene glycol 3350 [Miralax] 17 gram powder in packet 17 g PO DAILY Dermoplast (with menthol) 20-0.5 % Aerosol 1 spray topical QID PRN30 Days Qty: 78 0RF acetaminophen 500 mg Tablet 1,000 mg PO Q6H PRN30 Days Qty: 60 0RF ibuprofen 600 mg Tablet 600 mg PO Q6H PRN30 Days Qty: 60 0RF ferrous sulfate 325 mg (65 mg iron) tablet 325 mg PO Q OTHER DAY 30 Days Qty: 15 0RF hydroxyzine pamoate [Vistaril] 25 mg capsule 50 mg PO QHS Qty: 120 1RF dicloxacillin 500 mg capsule 500 mg PO QID Qty: 40 0RF Follow Up/Referrals: Provider,Not a Local [Primary Care Provider] - Stand Alone Forms: [facility] Inst[facility]
[2024-01-22 20:47] LABS: Appearance Urine Clear (Clear); Bilirubin Urine Negative (Negative); Color Urine Yellow (Yellow); Glucose Urine Negative (Negative); Ketones Urine Negative (Negative); Specific Gravity Urine 1.025 (1.000-1.030)
[2024-01-22 20:48] LABS: Blood Urine 3+ (Negative); Leukocyte Esterase Urine Trace (Negative); Nitrite Urine Negative (Negative); Protein Urine 1+ (Negative)
[2024-01-22 20:49] LABS: Amorphous Sediment Urine Moderate; Bacteria Urine Few; Squamous Epithelial Cell Urine Few (None-Few)
== END 2024-01-22 23:45 | disposition home or self-care (01) ==
PROVIDERS: Emergency Medicine Emergency Medical Services; Emergency Provider Family Medicine
DX: O99.345 Other mental disorders complicating the puerperium (principal); F53.0 Postpartum depression; N61.0 Mastitis without abscess
CPT/HCPCS: 81001; 81003; 87086; 99283; 99284

== ENCOUNTER 2024-01-25 12:19 | Outpatient (CLI) | payer BC, SELFPAY | END 2024-01-25 12:20 | disposition home or self-care (01) | PROVIDERS: Visit Provider Advanced Practice Midwife | DX: Z39.2 Encounter for routine postpartum follow-up (principal); R33.9 Retention of urine, unspecified; O90.6 Postpartum mood disturbance; Z13.29 Encounter for screening for other suspected endocrine disorder; Z13.21 Encounter for screening for nutritional disorder | CPT/HCPCS: 80069; 82306; 82565; 84443; 84520; 87086 ==

== ENCOUNTER 2024-06-25 09:30 | Outpatient (RCR) | payer BC, SELFPAY | END 2024-10-23 23:59 | disposition home or self-care (01) | PROVIDERS: Visit Provider Obstetrics & Gynecology | DX: N80.9 Endometriosis, unspecified (principal); R10.2 Pelvic and perineal pain; M25.552 Pain in left hip; M54.9 Dorsalgia, unspecified; N39.41 Urge incontinence; N32.9 Bladder disorder, unspecified; M62.81 Muscle weakness (generalized); Z51.89 Encounter for other specified aftercare | CPT/HCPCS: 97112; 97140; 97162; 97535 ==

== ENCOUNTER 2024-10-18 08:54 | Outpatient (CLI) | payer BC, SELFPAY | END 2024-10-18 08:55 | disposition home or self-care (01) | LOC: LKVREF 08:55 | PROVIDERS: Visit Provider Physician Assistant Medical | DX: K62.5 Hemorrhage of anus and rectum (principal) | CPT/HCPCS: 86140 ==